=== PATIENT | female | born 1965 | race Caucasian/White ===

== ENCOUNTER 2023-03-17 05:53 | Inpatient (IN) ==
[~2023-03-17 05:53] MED LIST: Naloxone 0.4 mg VIAL 0.4 mg/ml 1 ml VIAL IV PRN; Ondansetron 4 mg VIAL 2 MG/ML 2 ml VIAL IV PRN; fentaNYL 100 mcg/2 ml 50 MCG/ML VIAL IV PRN
[2023-03-17] MEDS ORDERED: Lactated Ringers 1000 ml BAG 1,000 ML IV SCH ×2 (06:00→11:00)
[2023-03-17] MEDS ORDERED: Buffered Lidocaine 1% SYRIN 1 ml INTRADERM ONE (06:00)
[2023-03-17] MEDS ORDERED: Tranexamic Acid 1 GM/100ML BAG 2,000 MG/200 ML BAG IV ONE (06:50)
[2023-03-17 07:15] LABS: Rapid COVID-19 Molecular Undetected (Undetected)
[2023-03-17] MEDS ORDERED: Bupivacaine 0.25% SDV 30 ML ONE (07:16)
[2023-03-17] MEDS ORDERED: fentaNYL 100 mcg/2 ml 50 MCG/ML VIAL ONE (07:25)
[2023-03-17] MEDS ORDERED: Midazolam 2 mg/2 ml VIAL 1 mg/ml 2 ml VIAL (2 mg) ONE (07:26)
[2023-03-17] MEDS ORDERED: Lidocaine 2% PF 5 ML VIAL ONE (07:28)
[2023-03-17] MEDS ORDERED: BUPIVACAINE **LIPOSOME/PF 13.3 MG/ML (266MG/ 20ML) VIAL (RESTRICTED) INFIL ONE (08:00)
[2023-03-17] MEDS ORDERED: Ondansetron 4 mg VIAL 2 MG/ML 2 ml VIAL ONE (08:21)
[2023-03-17] MEDS ORDERED: Phenylephrine IV 10 MG/ML 1 ml VIAL ONE (08:21)
[2023-03-17] MEDS ORDERED: Dexamethasone IV 4 MG/ML VIAL 1 ml VIAL ONE (08:21)
[2023-03-17] MEDS ORDERED: Acetaminophen IV 1 GM/100ML 1,000 MG/100 ML BAG IV ONE (08:24)
[2023-03-17] MEDS ORDERED: Propofol 10 MG/ML 20 ML BTL ONE ×2 (09:11→10:05)
[2023-03-17] MEDS ORDERED: Magnesium Hydroxide LIQ 30 ML UDC PO PRN (10:20)
[2023-03-17] MEDS ORDERED: Morphine 2 MG/ML SYRINGE IV PRN (10:20)
[2023-03-17] MEDS ORDERED: Ondansetron 4 mg VIAL 2 MG/ML 2 ml VIAL IV PRN (10:20)
[2023-03-17] MEDS ORDERED: Ondansetron ODT 4 mg TAB 4 MG TAB PO PRN (10:20)
[2023-03-17] MEDS ORDERED: Lactulose 30 ml UDC PO PRN (10:20)
[2023-03-17] MEDS ORDERED: Albuterol HFA INHALER 8 gm MDI INH PRN (10:30)
[2023-03-17] MEDS: ceFAZolin 1 GM ADVAN 1 GM in NS 0.9% 50 ML 50 ML IVPB SCH (16:04)
[2023-03-17] MEDS: Magnesium Hydroxide LIQ 30 ML UDC PO SCH (20:04)
[2023-03-18 07:04] LABS: Hemoglobin 11.5 g/dL (11.5-14.3); Mean Platelet Volume 8.7 fL (7.5-11.2); Platelet Count 284 10^3/uL (150-450)
[2023-03-18 07:21] LABS: Calcium 8.9 mg/dL (8.6-10.3); Creatinine, Serum 0.8 mg/dL (0.51-0.95); Potassium 3.9 mmol/L (3.5-5.0); eGFR CKD-EPI 84.8 (>60)
[2023-03-18] MEDS: ceFAZolin 1 GM ADVAN 1 GM in NS 0.9% 50 ML 50 ML IVPB SCH ×2 (08:26)
[2023-03-18] MEDS: Magnesium Hydroxide LIQ 30 ML UDC PO SCH (08:27)
[2023-03-18] MEDS ORDERED: ESTROVEN PO SCH (09:00)
[2023-03-18] MEDS ORDERED: Vitamin THERAPEUTIC TAB PO SCH (09:00)
[2023-03-18 10:07] VITALS: BP 106/65
== END 2023-03-18 12:07 | disposition home or self-care (01) | DRG 302 ==
LOC: OR 05:53 → SSU 05:53 → OBSVTOIN 12:16
PROVIDERS: ADMIT Orthopaedic Surgery Sports Medicine; ATTEND Orthopaedic Surgery Sports Medicine